=== PATIENT | female | born 1970 | race Caucasian/White ===

== ENCOUNTER 2021-10-07 10:31 | Emergency (ER) | payer MEDICAID ==
[~2021-10-07] VITALS: Ht 149.9 cm; Wt 72.6 kg
--- NOTE | 2021-10-07 10:31 | NUR ---
TRISH ALS TO ER BED 7
[2021-10-07 10:44] VITALS: BP 166/96
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
--- NOTE | 2021-10-07 10:45 | NUR ---
Blood collected and handed to Linda in lab for processing
--- NOTE | 2021-10-07 10:48 | NUR ---
Dr Melendez at bedside to assess pt at this time.
--- NOTE | 2021-10-07 11:20 | NUR ---
EKG OBTAINED AND RESULTS GIVEN TO DR. LEVINE
[2021-10-07 11:41] LABS: BASOPHILS # (AUTO) 0.1 K/uL (0.00-0.22); BASOPHILS % (AUTO) 0.6 % (0.0-2.0); EOSINOPHILS # (AUTO) 0.2 K/uL (0-0.4); EOSINOPHILS % (AUTO) 2.5 % (0.0-4.0); HEMOGLOBIN 14.8 g/dL (12.0-16.0); LYMPHOCYTES # (AUTO) 3.3 K/uL (2.5-16.5); LYMPHOCYTES % (AUTO) 36.6 % (20.5-51.1); MEAN CORPUSCULAR HEMOGLOBIN 31 pg (27-31); MEAN CORPUSCULAR HGB CONC 34 g/dL (33-37); MEAN CORPUSCULAR VOLUME 89.3 fL (80-94); MONOCYTES # (AUTO) 0.5 K/uL (0.8-1.0); MONOCYTES % (AUTO) 5.3 % (1.7-9.3); NEUTROPHILS # (AUTO) 4.9 K/uL (1.8-7.7); PLATELET COUNT (AUTO) 249 K/uL (140-450); RED BLOOD CELL COUNT(AUTO) 4.82 MIL/uL (4.20-5.40); RED CELL DISTRIBUTION WIDTH 13.6 % (11.6-13.7); WHITE BLOOD COUNT (AUTO) 8.9 K/uL (4.8-10.8)
--- NOTE | 2021-10-07 12:09 | NUR ---
PATIENT AMBULATED TO RESTROOM W/ STEADY GAIT.
--- NOTE | 2021-10-07 12:11 | NUR ---
PATIENT AMBULATED TO ROOM W/ STEADY GAIT.
--- NOTE | 2021-10-07 12:19 | NUR ---
Urine sample obtained, dipped and results shown to GALDINO Melendez. Urine handed to Nikki Card at this time
[2021-10-07 12:26] VITALS: BP 145/77
[2021-10-07 12:57] LABS: ALBUMIN 3.9 g/dL (3.4-5.0); ANION GAP 16.4 (8-16); CARBON DIOXIDE 22.9 mmol/L (21-32); CREATININE 0.7 mg/dL (0.6-1.3); POTASSIUM 3.3 mmol/L (3.5-5.1); TOTAL BILIRUBIN 0.5 mg/dL (0.0-1.0)
[2021-10-07] MEDS ORDERED: POTASSIUM CHLORIDE 10 MEQ TABER PO ONE (13:25)
[2021-10-07 13:37] LABS: BASOPHILS % (AUTO) 0.4 % (0.0-2.0); EOSINOPHILS # (AUTO) 0.2 K/uL (0-0.4); EOSINOPHILS % (AUTO) 1.7 % (0.0-4.0); HEMATOCRIT 43.3 % (36-48); HEMOGLOBIN 14.8 g/dL (12.0-16.0); LYMPHOCYTES # (AUTO) 1.9 K/uL (2.5-16.5); LYMPHOCYTES % (AUTO) 18.2 % (20.5-51.1); MEAN CORPUSCULAR HEMOGLOBIN 31 pg (27-31); MEAN CORPUSCULAR HGB CONC 34 g/dL (33-37); MEAN CORPUSCULAR VOLUME 89.9 fL (80-94); MONOCYTES # (AUTO) 0.7 K/uL (0.8-1.0); MONOCYTES % (AUTO) 6.3 % (1.7-9.3); NEUTROPHILS # (AUTO) 7.7 K/uL (1.8-7.7); NEUTROPHILS % (AUTO) 73.4 % (42.2-75.2); PLATELET COUNT (AUTO) 257 K/uL (140-450); RED BLOOD CELL COUNT(AUTO) 4.82 MIL/uL (4.20-5.40); RED CELL DISTRIBUTION WIDTH 13.2 % (11.6-13.7); WHITE BLOOD COUNT (AUTO) 10.5 K/uL (4.8-10.8)
[2021-10-07 13:43] LABS: ALBUMIN 3.7 g/dL (3.4-5.0); ANION GAP 11.3 (8-16); CARBON DIOXIDE 28.1 mmol/L (21-32); CREATININE 0.6 mg/dL (0.6-1.3); POTASSIUM 3.4 mmol/L (3.5-5.1); TOTAL BILIRUBIN 0.3 mg/dL (0.0-1.0)
== END 2021-10-07 13:45 | disposition home or self-care (01) ==
LOC: MED 10:31
DX: R55 Syncope and collapse (principal); E87.6 Hypokalemia; Z88.6 Allergy status to analgesic agent
CPT/HCPCS: 36415; 80053; 81002; 81025; 84484; 85025; 93005; 99284